=== PATIENT | female | born 1990 | race Two or more races ===

== ENCOUNTER 2016-11-12 20:07 | Inpatient (IN) | payer MEDICAID ==
[~2016-11-12] VITALS: Ht 157.5 cm; Wt 72.3 kg
[~2016-11-12 20:07] MED LIST: IRON TABLETS325 MG PO; MACROBID 100MG100 MG PO; MOTRIN 400MG.400 MG PO; NOMEDS XX; PHENERGAN12.5 M3 PO; PRENATAL PLUS1 TA1 PO; PYRIDIUM 200MG200 MG PO; ZOFRAN4 MG PO
--- NOTE | 2016-11-12 20:45 | HISTORY AND PHYSICAL REPORT ---
Demographics: Admit date: 11/12/16 Chief complaint: Am having contractions PRIMARY DIAGNOSIS: * (Labor at 41 weeks) Allergies: Coded Allergies: No Known Allergies (09/29/16) Comment: 26y/o @ 41 wks with EDC 11/04/16 by available records. Pt however, notes her EDC as 11/26/16. Pt presents to L&D with c/o contractions that started an hour ago while celebrating her daughter's 1 year birthday green party. Pt denies LOF, VB. Admits to intercourse 2 days ago. Notes a little spotting. Admits to good FM History of present illness: History of present illness: 26y/o @ 41 wks with EDC 11/04/16 by available records. Pt however, notes her EDC as 11/26/16. Pt presents to L&D with c/o contractions that started an hour ago while celebrating her daughter's 1 year birthday green party. Pt denies LOF, VB. Admits to intercourse 2 days ago. Notes a little spotting. Admits to good FM Past medical history: Family HX Family Hx Insignificant Yes Immunization HX DT/Tetanus 5-10 Years Ago Flu Refused Pneumonia Refuses General Angina: No [place]: No Hypertension? No Hyperlipidemia? No CHF? No COPD? No Asthma? No CVA? No Seizures? No Diabetes? No GB Disease: No Nephritic Syndrome? No Asplenia? No Sickle Cell Disease? No MRSA? No TB? No Cancer? No Past Surgical HX Previous Surgery?Y BIOPSY LEFT SHOULER SURGERY RIGHT KNEE Current home meds: Active Scripts PROMETHAZINE HCL (Phenergan 12.5MG Tab (Geq)) 12.5 MG PO Q4HP PRN NAUSEA #20 TAB Ref 1 Prov: 09/30/16 Social Hx: Smoking HX Tobacco No Alcohol Alcohol: No Hx of Drug Use Drug Use? No Patien't marital status is Patient's support system is good Review of systems: Constitutional No: no symptoms reported. Eyes No: no symptoms reported. Ears, Nose, Mouth, Throat No no symptoms reported Respiratory No: no symptoms reported. Cardiovascular No no symptoms reported Gastrointestinal/Abdominal No no symptoms reported Genitourinary No: no symptoms reported. Musculoskeletal No: no symptoms reported. Skin No: no symptoms reported. Neurological No: see HPI. Psychiatric No: no symptoms reported. Exam: Exam General appearance: normal appearance Cardiovascular: normal exam Respiratory: normal exam ABD: normal exam, soft, no tenderness, no guarding (gravid) Genitourinary: normal voiding & quantity Extremities: normal exam Musculoskeletal: normal exam Skin: normal exam Neuro: normal exam Additional information: FHT: Cat I Lipscomb: Q3mins SVE: 7-8/100/0, intact Plan: Problem List 1. Plan: 41weeks Labor. Admit for labor Rh neg pt declines epidural GBS status unknown, will not treat as no risk factors present for treatment--no previous baby with septicemia, no GBS bacteriuria, full term, not ruptured. expectant management at 2044
[2016-11-12 20:48] VITALS: BP 132/78
[2016-11-12 20:52] LABS: LYMPH # 2.3 K/mm3 (0.7-4.5); LYMPH % 19.7 % (10-50.0)
[2016-11-12] MEDS ORDERED: PRENATAL PLUS1 TA1 PO (20:54)
--- NOTE | 2016-11-12 21:42 | Delivery Note ---
See Addendum Delivery note Delivery date: 11/12/16 Delivery time: 2116 Anesthesia: local Was labor medically induced? No Gestational age in weeks: 41 weeks Days: 1 day Delivery prior to 39 weeks? No Justification for delivery: Active labor Sex: male score at one minute: 9 at 5 minutes: 9 Type of suction: bulb AF: scant clear LAC or MLE: LAC (1st degree midline laceration) Delivery procedure: Normal Delivery Delivery of placenta: spontaneous Clinical note 26 y/o @ 41 1/7wks presents in active labor. Delivered a viable male infant over perineum w/o anesthesia, in OA presentation. cord was clamped and cut by FOB. Small appearing placenta was delivered spontaneously at 2122 with 3vc. vigorous placed on mothers chest. perineum was injected with 6cc of 1% lido with epi and a small 1st degree laceration repaired using 2-0 vicryl by figure of 8. Good hemostasis. Pt zak procedure well. EBL 250cc at 2147
[2016-11-12 21:49] LABS: ABO BLOOD TYPE O; RH BLOOD TYPE NEGATIVE
[2016-11-13 07:29] LABS: HEMOGLOBIN 11.4 g/dL (12.2-16.2)
--- NOTE | 2016-11-13 10:21 | PHARMACY CLINIC NOTE ---
Patient Demographics Patient Demographics Admission date: 11/12/16 Date: 11/13/16 Time: 1020 Allergies Coded Allergies: No Known Allergies (09/29/16) HEIGHT- FT: 5 IN: 2.00 K.292 VTE General Information Labs: Laboratory Tests 11/13 0600 Hematology Hgb (12.2 - 16.2 g/dL) 11.4 L Hct (37.0 - 47.0 %) 33.0 L Disclaimer The following section includes nursing documentation that has been pulled in for pharmacy review. VTE prophylaxis [id number] VTE prophylaxis ordered? Yes Type of prophylaxis/treatment: MADI at 1020
--- NOTE | 2016-11-13 10:26 | Discharge Summary ---
Discharge Summary Admission date: 11/10/16 Discharge date: 11/13/16 Discharge diagnoses: Primary C/S with BTL secondary to CPD Preeclampsia with severe features Anemia secondary to acute blood loss Clinical note: 26 y/o G3 now P3 with failed IOL secondary to CPD with PCS+BTL. Uncomplicated course Course in hospital: On POD#1 pt was noted to be having severe range blood pressures with mild headache. ON review of history, elevated BP noted towards end of . PIh labs were obtained. AST slightly elevated and had proteinuria. Pt was hence diagnosed with preeclampsia with severe features. This finding was discussed with pt and need for magnesium sulfate was started x 24hrs. Pt had excellent input and output with therapeutic mag level throughout course. Pt was then initally started on Procardia xL 60mg but was still having elevated BPs. Procardia XL was then increased to 90mg daily. BPs now in the normal range and pt asymptomatic. Pt to be d/c home today on Procardia xL 90mg po daily. Pt as counselled on R/B/A/I of hyper and hypotension. Was advised to f/u in 1 week for BP check at her primary OB office. Postoperative course was uncomplicated. Pain was well controlled. No need for narcotics during postop course. Anemia was noted but was attributed to acute blood loss from C/S. Pt was asymptomatic and was started on ferrous sulfate. Plans for ongoing care: Pt to be monitored closely for her elevated BP. Pt to f/u with here primary OB in 1 week for BP check Discharge medications Percocet 5/325mg 1-2 tabs po Q4-6hr pp Ferrous sulfate 325mg po TID Colace 100mg po BID Motrin 600mg po Q8hr pp Procardia xL 90mg po QD DC/follow-up instructions f/u with primary OB in 1 week for BP check Keep incision clean, dry, and intact Notify your primary OB of headache, dizziness, weakness, fever, chills, nausea or vomiting Ambulate frequently Avoid anything per vagina x4-6wks until cleaned by primary OBGYN physician Condition at discharge stable at 1026
[2016-11-13] MEDS ORDERED: HYDROCODONE-APA1 TA1 PO (10:32)
[2016-11-13] MEDS ORDERED: [UNRECOGNIZED DRUG - OTHER] PO (10:33)
[2016-11-13] MEDS ORDERED: MOTRIN 600MG.600 MG PO (10:34)
[2016-11-13] MEDS ORDERED: NIFEDIPINE ER90 MG PO (10:35)
--- NOTE | 2016-11-13 10:58 | ACUTE CARE PROGRESS NOTE (QUA) ---
Progress Notes Subjective Date 11/13/16 Time 1050 Note PT DOING WELL. NO COMPLAINTS. DENIES FRANKS, BLURRED VISION, OR RUQ PAIN. MIN LOCHIA. BOTTLE FEEDING. Patient/family reports: feeling better Objective Findings Last VS-Temp:97.5 B/P:132/78 Pulse:86 Resp:18 SaO2: Last weight lbs:159 oz:6 K.292 Method:Digital Scales Exam General appearance: normal appearance Eyes: normal exam Cardiovascular: normal exam Respiratory: normal exam ABD: normal exam, FUNDUS FIRM 3CM BELOW UMBILICUS Genitourinary: normal voiding & quantity Extremities: normal exam Skin: normal exam Reviewed: medications, vital signs, lab results Assessment/Plan Problem List 1. care and examination Patient condition Improving Plan: continue current care This inpt stay is expected to cross 2 MNs from start of care Yes Comments: CONT PP CARE D/C IN AM at 1058
[2016-11-13 21:43] VITALS: BP 103/55
--- NOTE | 2016-11-14 08:45 | ACUTE CARE PROGRESS NOTE (QUA) ---
Progress Notes Subjective Date 11/14/16 Time 0844 Note She is doing very well this morning. She is eating and drinking and ambulating. She is bottlefeeding. Her lochia is normal. Patient/family reports: feeling better, no complaints Objective Findings Last VS-Temp:98.4 B/P:103/55 Pulse:70 Resp:18 SaO2: Last weight lbs:159 oz:6 K.292 Method:Digital Scales Laboratory Tests 11/13/16 0600: Hgb 11.4 L, Hct 33.0 L 11/12/16 0830: MCH 28.5 11/12/16 0830: WBC 11.7 H, RBC 4.55, Hgb 13.0, Hct 37.6, MCV 82.7, RDW 14.7, Plt Count 317, MPV 8.7, Gran % 74.0, Gran # 8.7 H, Lymphocytes % 19.7, Monocytes % 4.7, Eosinophils % 1.2, Basophils % 0.3, Lymphocytes # 2.3, Monocytes # 0.6, Eosinophils # 0.1, Basophils # 0.0, PUBS MCHC 34.5, Antibody Screen NEGATIVE, Miscellaneous Test NEGATIVE Exam General appearance: normal appearance, alert, awake, no acute distress Reviewed: vital signs, lab results Assessment/Plan Problem List 1. care and examination Patient condition Improving, Stable Plan: continue current care, initiate discharge plan This inpt stay is expected to cross 2 MNs from start of care Yes Comments: She is doing very well this morning. We will plan to send her home. at 0845
--- NOTE | 2016-11-14 08:49 | Discharge Summary ---
Discharge Summary Admission date: 11/12/16 Discharge date: 11/14/16 Discharge diagnoses: Term , spontaneous vaginal delivery Clinical note: She is a 26-year-old 3 now para 3 who was 38 weeks gestational age. She came in in active labor and rapidly delivered a live-born male child at 9:17 PM in the evening of November 12, 2015. Course in hospital: She arrived in active labor and rapidly delivered a live-born male child at 9:17 PM in the evening of November 12, 2016. The baby weighed 6 lbs. 8 oz. and was 19- 1/4 inches long. He had Apgars of 9 at 1 minute and 9 at 5 minutes. She has done well and has remained afebrile throughout her hospitalization. She is eating and drinking and ambulating. She is bottlefeeding. She has O negative blood and her baby is also Rh negative so she did not receive RhoGam. She was rubella immune and group B streptococcus negative. Laboratory Tests 11/13/16 0600: Hgb 11.4 L, Hct 33.0 L 11/12/16 0830: MCH 28.5 11/12/16 0830: WBC 11.7 H, RBC 4.55, Hgb 13.0, Hct 37.6, MCV 82.7, RDW 14.7, Plt Count 317, MPV 8.7, Gran % 74.0, Gran # 8.7 H, Lymphocytes % 19.7, Monocytes % 4.7, Eosinophils % 1.2, Basophils % 0.3, Lymphocytes # 2.3, Monocytes # 0.6, Eosinophils # 0.1, Basophils # 0.0, PUBS MCHC 34.5, Antibody Screen NEGATIVE, Miscellaneous Test NEGATIVE Plans for ongoing care: She is discharged home to follow-up with me in approximately 2 weeks' time. Discharge medications She will continue with her vitamins and iron. She was given a prescription for ibuprofen 400 mg, 40 tablets as well. DC/follow-up instructions She was given the usual instructions with respect to limiting her activity, driving and sexual activity. Condition at discharge Stable and improved. at 0848
[2016-11-14] MEDS ORDERED: MOTRIN 400MG.400 MG PO (08:50)
[2016-11-14 21:15] VITALS: BP 122/81
== END 2016-11-14 21:45 | disposition home or self-care (01) | DRG 775 ==
LOC: OB 20:07 → OBOUT 20:07 → OB 20:08 → OBOUT 20:24 → OB 20:25
PROVIDERS: Obstetrics & Gynecology
PROC: 0HQ9XZZ Repair Perineum Skin, External Approach (ICD-10-PCS; principal; 2016-11-12)
PROC: 10E0XZZ Delivery of Products of Conception, External Approach (ICD-10-PCS; 2016-11-12)
DX: O70.0 First degree perineal laceration during delivery (principal); Z37.0 Single live birth; Z3A.41 41 weeks gestation of pregnancy